=== PATIENT | female | born 1960 | race Caucasian/White ===

== ENCOUNTER 2024-07-06 13:44 | Emergency (ER) | payer OTHER, SELFPAY ==
[2024-07-06] VITALS (13 sets, daily range): BP systolic 155–182; BP diastolic 67–88; PULSE 63–87; RESP 14–25; TEMP 36.5; O2SAT 91–99; BMI 38.4
--- NOTE | 2024-07-06 13:51 | DI.RAD.S_ITS ---
PROCEDURE: XR CHEST 1V INDICATIONS: chest pain TECHNIQUE: One view of the chest was acquired. COMPARISON: None. FINDINGS: Surgical changes and devices: None. Lungs and pleura: There is mild pulmonary vascular congestion. No definite focal infiltrate. No pleural effusions or pneumothorax. Mediastinum: Mediastinal contours appear normal. Heart size is normal. Bones and chest wall: No suspicious bony lesions. Overlying soft tissues appear unremarkable. IMPRESSION: Mild congestion. No focal infiltrate, pleural effusion or pneumothorax. Dictated by: Jose Alfredo Black M.D. on 07/06/2024 at 14:11 Approved by: Jose Alfredo Black M.D. on 07/06/2024 at 14:11
[2024-07-06] MEDS: ASPIRIN 81 MG CHEW TAB 324 MG PO (13:54)
--- NOTE | 2024-07-06 13:54 | EKG_ITS ---
[address] [address] Test Date: 2024-07-06 Pat Name: Katherine He Department: Room: Gender: Female [employer]: EVANS : 1960 Requested By: Order Number: [id number] Reading MD: Perry Cerda MD Measurements Intervals [place] Rate: 63 P: 19 SC: 164 QRS: 6 QRSD: 84 T: 23 QT: 396 QTc: 405 Interpretive Statements Normal sinus rhythm Cannot rule out Inferior infarct , age undetermined Electronically Signed On 07-07-2024 7:28:32 PDT by Perry Cerda MD
[2024-07-06 14:16] LABS: Add Manual Diff / Slide Review NO; Basophils Absolute Auto 100 /uL (0-100); Basophils Percent Auto 0.9 % (0-2); Eosinophils Absolute Auto 200 /uL (0-450); Eosinophils Percent Auto 1.8 % (2-4); Hematocrit 44.7 % (36-46); Hemoglobin 15.1 g/dL (12.0-16.0); Lymphocytes Absolute Auto 1900 /uL (1100-4500); Mean Corpuscular HGB Conc 33.7 % (30-36); Mean Corpuscular Hemoglobin 29.8 PG (26-34); Mean Corpuscular Volume 88.5 fL (80-100); Monocytes Absolute Auto 500 /uL (0-900); Monocytes Percent Auto 6.3 % (3-14); Neutrophils Absolute Auto 5600 /uL (1500-7000); Platelet Count 316 X10^3/uL (150-400); Red Blood Cell Count 5.05 X10^6/uL (4.0-5.2); Red Cell Distribution Width 14.4 % (11.6-14.8); White Blood Cell Count 8.2 X10^3/uL (4.5-11.0)
[2024-07-06 14:31] LABS: PTT Partial Thromboplastin Tim 39 SECONDS (25.1-36.5); Prothrombin Time 11.5 SECONDS (9.4-12.5)
[2024-07-06 14:34] LABS: Alanine Aminotransferase 19 IU/L (<35); Albumin 4.7 g/dL (3.5-5.0); Albumin Globulin Ratio 1.3 (1.0-2.8); Alkaline Phosphatase 96 U/L (38-126); Aspartate Aminotransferase 25 IU/L (14-36); BUN Creatinine Ratio 22.4 (6-22); Bilirubin Total 0.6 mg/dL (0.2-1.3); Blood Urea Nitrogen 17 mg/dL (7-17); Calcium 9.8 mg/dL (8.4-10.2); Carbon Dioxide 25 mmol/L (22-32); Chloride 102 mmol/L (98-107); Creatine Kinase 73 U/L (30-135); Estimated Glomerular Filt Rate > 60 mL/min (>60); Globulin 3.6 g/dL (1.7-4.1); Glucose 110 mg/dL (80-110); HEMOLYSIS < 15 (0-50); Lipase 291 U/L (23-300); Magnesium 2.1 mg/dL (1.6-2.3); Potassium 4.3 mmol/L (3.4-5.1); Sodium 138 mmol/L (137-145); Total Protein 8.3 g/dL (6.3-8.2)
[2024-07-06 14:45] LABS: NT-proBNP (BNP-Adult 18+) < 20 pg/mL (<125); Troponin I < 0.012 ng/mL (0.01-0.034)
[2024-07-06 14:57] LABS: Appearance Urine UA CLEAR; Bilirubin Urine UA NEGATIVE (NEGATIVE); Color Urine UA YELLOW; Glucose Urine UA NEGATIVE (Negative); Ketones Urine UA 1+ (NEGATIVE); Leukocyte Esterase Urine UA NEGATIVE (NEGATIVE); Nitrite Urine UA NEGATIVE (Negative); Occult Blood Urine UA 2+ (Negative); Protein Urine UA NEGATIVE (Negative); Urobilinogen Urine UA 0.2 E.U./dL (0.2)
[2024-07-06 15:00] LABS: pH Urine UA 5.5 (4.5-8.0)
[2024-07-06 15:17] LABS: Amorphous Sediment Urine 1+; Bacteria Urine None Seen; Culture Indicated Urine Cult Not Indicated; RBC Urine 1-5/HPF (0-5/HPF); Squamous Epithelial Cell Urine None Seen (0-5/HPF); Urine Volume 10mL (spun); WBC Urine None Seen (0-5/HPF)
--- NOTE | 2024-07-06 15:26 | ED.DIZZY ---
HPI - Dizziness General Chief Complaint: Dizziness Stated Complaint: Dizzy,HTN Time Seen by Provider: 07/06/24 14:58 Source: patient Mode of arrival: EMS History of Present Illness HPI Narrative: Patient here with co-worker for complaints of dizziness that occurred around 12:45 p.m. today. She is feeling much better. Blood pressure noted. This is higher than what she is normally at. She has been journaling her blood pressure in the past 1 month and if she is not on any blood pressure medication. She has been evaluated by her family doctor in the last year and was told to monitor blood pressure. No primary family history of coronary artery disease or hypertension. Patient denies any chest pain shortness of breath or palpitations. She is feeling better now. At the office the systolic blood pressure was 182. Patient in no distress at this time. No history of heart attack strokes or diabetes. Complains of mild head discomfort but does not describe it as a headache. No slurred speech or facial droop. No limb numbness tingling or weakness. Fast exam is negative. Related Data Previous Rx's Medication Instructions Recorded lisinopril 10 mg tablet 10 mg PO DAILY #30 tabs 07/06/24 Allergies Allergy/AdvReac Type Severity Reaction Status Date / Time Penicillins [PENICILLINS] Allergy Unknown Verified 07/06/24 13:51 Review of Systems Review of Systems Narrative: GENERAL: Negative chills, fatigue, malaise, fever, sweats. HEENT: Negative sinus pain, ear pain, sore throat RESPIRATORY: Negative dyspnea, cough CARDIOVASCULAR: Negative chest pain, palpitations GASTROINTESTINAL: Negative vomiting, nausea, abdominal pain : Negative dysuria, frequency, hematuria MUSCULOSKELETAL: Negative muscle or bony pain SKIN: Negative rash, skin lesions NEUROLOGIC: Negative weakness, numbness positive dizziness ROS Unobtainable: All systems reviewed & are unremarkable except as noted in HPI and below Patient History Social History Smoking Status: Former smoker Smoking Status: Former smoker Exam Narrative Exam Narrative: GENERAL: in no distress, not toxic not dyspneic HEAD: Normocephalic. EYES: Pupils equal round no nystagmus ENT: Mucous membranes moist. NECK: Trachea midline. CARDIOVASCULAR: Regular rate and rhythm RESPIRATORY: Clear to auscultation. Breath sounds equal bilaterally. No wheezes, rales, or rhonchi. GASTROINTESTINAL: Abdomen soft, non-tender EXTREMITIES: No gross deformities. BACK: No flank tenderness. NEURO: AOx4. Clear speech no facial droop light touch intact bilateral face hands and legs strong equal molder feeder negative pronator drift. Fast exam negative. Patient denies any dizziness at this time. SKIN: Warm and dry PSYCH: Not anxious, is cooperative Initial Vital Signs Initial Vital Signs: Vital Signs Temperature 97.7 F 07/06/24 13:44 Pulse Rate 72 07/06/24 13:44 Respiratory Rate 18 07/06/24 13:44 Blood Pressure 182/82 H 07/06/24 13:44 Pulse Oximetry 97 07/06/24 13:44 Oxygen Delivery Method Room Air 07/06/24 13:44 Course Orders Ordered: Discontinued Medications Acetaminophen (Acetaminophen 325 Mg Tablet) 975 mg PO NOW ONE Stop: 07/06/24 15:30 Last Admin: 07/06/24 15:44 Dose: 975 mg Documented By: JUAN C Aspirin (Aspirin 81 Mg Chew Tab) 324 mg PO NOW ONE Stop: 07/06/24 13:52 Last Admin: 07/06/24 13:54 Dose: 324 mg Documented By: JUAN C Hydralazine HCl (Hydralazine 20 Mg/Ml Vial) 5 mg IV NOW ONE Stop: 07/06/24 16:59 Last Admin: 07/06/24 17:15 Dose: Not Given Documented By: ALESSANDRO Lisinopril (Lisinopril 10 Mg Tablet) 10 mg PO NOW ONE Stop: 07/06/24 15:27 Last Admin: 07/06/24 16:02 Dose: 10 mg Documented By: JUAN C Vital Signs Vital signs: Vital Signs - 8 hr 07/06/24 13:44 07/06/24 13:49 07/06/24 13:49 Temperature 97.7 F Pulse Rate 72 73 Respiratory Rate 18 Blood Pressure 182/82 H 182/82 H Pulse Oximetry 97 97 Oxygen Delivery Method Room Air 07/06/24 14:00 07/06/24 14:00 07/06/24 14:30 Temperature Pulse Rate 72 Respiratory Rate 22 Blood Pressure 173/67 H 177/88 H Pulse Oximetry 99 Oxygen Delivery Method 07/06/24 14:30 07/06/24 15:00 07/06/24 15:36 Temperature Pulse Rate 72 68 87 Respiratory Rate 23 14 Blood Pressure Pulse Oximetry 97 98 98 Oxygen Delivery Method 07/06/24 16:00 07/06/24 16:30 07/06/24 16:46 Temperature Pulse Rate 67 67 63 Respiratory Rate 21 23 21 Blood Pressure Pulse Oximetry 97 95 98 Oxygen Delivery Method 07/06/24 16:46 07/06/24 17:15 Temperature Pulse Rate 72 Respiratory Rate Blood Pressure 181/80 H 155/72 H Pulse Oximetry Oxygen Delivery Method MDM - Dizziness Lab Data 07/06/24 14:00 07/06/24 14:00 Labs: Lab Results 07/06/24 07/06/24 Range/Units 14:00 14:42 WBC 8.2 (4.5-11.0) X10^3/uL RBC 5.05 (4.0-5.2) X10^6/uL Hgb 15.1 (12.0-16.0) g/dL Hct 44.7 (36-46) % MCV 88.5 (80-100) fL MCH 29.8 (26-34) PG MCHC 33.7 (30-36) % RDW 14.4 (11.6-14.8) % Plt Count 316 (150-400) X10^3/uL Neut % (Auto) 68.0 (50-75) % Lymph % (Auto) 23.0 L (25-40) % [place] % (Auto) 6.3 (3-14) % Eos % (Auto) 1.8 L (2-4) % Baso % (Auto) 0.9 (0-2) % Neut # (Auto) 5600 (3906-1341) /uL Lymph # (Auto) 1900 (6640-7915) /uL [place] # (Auto) 500 (0-900) /uL Eos # (Auto) 200 (0-450) /uL Baso # (Auto) 100 (0-100) /uL PT 11.5 (9.4-12.5) SECONDS INR 1.0 (0.9-1.3) APTT 39 H (25.1-36.5) SECONDS Sodium 138 (137-145) mmol/L Potassium 4.3 (3.4-5.1) mmol/L Chloride 102 (98-107) mmol/L Carbon Dioxide 25 (22-32) mmol/L BUN 17 (7-17) mg/dL Creatinine 0.76 (0.52-1.04) mg/dL Estimated GFR > 60 (>60) mL/min BUN/Creatinine Ratio 22.4 H (6-22) Glucose 110 (80-110) mg/dL Calcium 9.8 (8.4-10.2) mg/dL Magnesium 2.1 (1.6-2.3) mg/dL Total Bilirubin 0.6 (0.2-1.3) mg/dL AST 25 (14-36) IU/L ALT 19 (<35) IU/L Alkaline Phosphatase 96 (38-126) U/L Total Creatine Kinase 73 (30-135) U/L Troponin I < 0.012 (0.01-0.034) ng/mL NT-Pro-B Natriuret Pep < 20 (<125) pg/mL Total Protein 8.3 H (6.3-8.2) g/dL Albumin 4.7 (3.5-5.0) g/dL Globulin 3.6 (1.7-4.1) g/dL Albumin/Globulin Ratio 1.3 (1.0-2.8) Lipase 291 (23-300) U/L Urine Color Yellow Urine Appearance Clear Urine pH 5.5 (4.5-8.0) Ur Specific [place] 1.010 (1.000-1.035) Urine Protein Negative (Negative) Urine Glucose (UA) Negative (Negative) g/dL Urine Ketones 1+ H (NEGATIVE) Urine Occult Blood 2+ H (Negative) Urine Nitrate Negative (Negative) Urine Bilirubin Negative (NEGATIVE) Urine Urobilinogen 0.2 (0.2) E.U./dL Ur Leukocyte Esterase Negative (NEGATIVE) Urine RBC 1-5/hpf (0-5/HPF) Urine WBC None seen (0-5/HPF) Ur Squamous Epith Cells None seen (0-5/HPF) Amorphous Sediment 1+ Urine Bacteria None seen (None) Ur Culture Indicated? Cult not indicated Vol Urine Centrifuged 10ml (spun) Imaging Data Chest x-ray: Radiologist's Impression: [address] [address] XRay Report Signed Patient: Katherine He MR#: [id number] : 1960 Acct:[id number] Age/Sex: 64 / F Date of Service: 07/06/24 Loc: ED Accession Number: [id number] Procedure: XR chest 1V Ordering Provider: Marlon Dupree MD PROCEDURE: XR CHEST 1V INDICATIONS: chest pain TECHNIQUE: One view of the chest was acquired. COMPARISON: None. FINDINGS: Surgical changes and devices: None. Lungs and pleura: There is mild pulmonary vascular congestion. No definite focal infiltrate. No pleural effusions or pneumothorax. Mediastinum: Mediastinal contours appear normal. Heart size is normal. Bones and chest wall: No suspicious bony lesions. Overlying soft tissues appear unremarkable. IMPRESSION: Mild congestion. No focal infiltrate, pleural effusion or pneumothorax. Dictated by: Jose Alfredo Black M.D. on 07/06/2024 at 14:11 Approved by: Jose Alfredo Black M.D. on 07/06/2024 at 14:11 CT scan - head: Radiologist's Impression: [place] [address] CT Scan Report Signed Patient: Katherine He MR#: [id number] : 1960 Acct:[id number] Age/Sex: 64 / F Date of Service: 07/06/24 Loc: ED Accession Number: [id number] Procedure: CT head/brain wo con Ordering Provider: Marlon Dupree MD PROCEDURE: CT HEAD/BRAIN WO CON INDICATIONS: Dizziness TECHNIQUE: Noncontrast 4.5 mm thick angled axial sections acquired from the foramen magnum to the vertex, with coronal and sagittal reformats. For radiation dose reduction, the following was used: automated exposure control, adjustment of mA and/or kV according to patient size. COMPARISON: None. FINDINGS: Image quality: Diagnostic. CSF spaces: Basal cisterns are patent. No extra-axial fluid collections. The ventricles are symmetric in size and shape. Brain: No intracranial bleeds or masses. There is cerebral volume loss for age, with resultant ventricular and sulcal prominence. There are periventricular and deep white matter chronic small vessel ischemic changes. There is intracranial internal carotid artery atherosclerosis. Skull and face: Calvarium and visualized facial bones appear intact, without suspicious lesions. Sinuses: Visualized sinuses and mastoids are clear. IMPRESSION: No acute intracranial pathology. Age related volume loss and mild white matter small vessel chronic ischemic changes. Dictated by: Jose Alfredo Black M.D. on 07/06/2024 at 15:46 Approved by: Jose Alfredo Black M.D. on 07/06/2024 at 15:46 [facility] Narrative Medical decision making narrative: Patient here with co-worker for complaints of dizziness that occurred around 12:45 p.m. today. She is feeling much better. Blood pressure noted. This is higher than what she is normally at. She has been journaling her blood pressure in the past 1 month and if she is not on any blood pressure medication. She has been evaluated by her family doctor in the last year and was told to monitor blood pressure. No primary family history of coronary artery disease or hypertension. Patient denies any chest pain shortness of breath or palpitations. She is feeling better now. At the office the systolic blood pressure was 182. Patient in no distress at this time. No history of heart attack strokes or diabetes. Complains of mild head discomfort but does not describe it as a headache. No slurred speech or facial droop. No limb numbness tingling or weakness. Fast exam is negative. After history and exam, CBC CMP troponin BNP chest x-ray CT head lisinopril Tylenol [facility] Medical records reviewed: No recent visit for this complaint Differential considered: Includes but not limited to hypertensive urgency stroke TIA arrhythmia Lab Test results independently reviewed as above. Pertinent findings: WBC 8.2 hemoglobin 15.1 INR 1.0 sodium 138 potassium 4.3 BUN 17 creatinine 0.76 glucose 110 troponin less than 0.012 BNP less than 20 Independently reviewed EKG normal sinus rhythm rate [address] elevation or depression Imaging studies independently reviewed: Chest x-ray no acute finding CT head no acute finding Consultations: None indicated at this time Treatments: Lisinopril/hydralazine Re-evaluations: 4:58 p.m.. Patient not dizzy. Up and walking of the bathroom without dizziness. However blood pressure systolic still 180/80. I will order hydralazine 5 mg now. No headache. 5:20 p.m.. Blood pressure 155/72 pulse 72 without hydralazine given. Patient asymptomatic. Return precautions reviewed with her. She does have a family doctor to follow up with. Lisinopril has been sent to her [facility] pharmacy to product picker and start tomorrow. She desires discharge home. Reviewed with her likely hypertensive urgency causing her symptoms today. However results are reassuring. She desires discharge home Discussion: Appropriate for exam is reassuring. Return precautions reviewed patient. Likely hypertension causing patient's symptoms. Symptoms have resolved with blood pressure control here. She desires discharge home. Likely not stroke. Diagnosis: Hypertension Discharge Plan Departure Patient Disposition: Home Clinical Impression: Hypertension Qualifiers: Hypertension type: unspecified Qualified Code(s): I10 - Essential (primary) hypertension Instructions: Essential Hypertension Activity Restrictions/Additional Instructions: Your dizziness and symptoms are likely due to spike in your blood pressure. Medication has been started for your blood pressure. Prescription has been sent to your pharmacy. Please see your family doctor within a week for re-evaluation and recheck of your blood pressure. Return if worse if any questions or concerns. Your results here are reassuring. Prescriptions: New lisinopril 10 mg tablet 10 mg PO DAILY Qty: 30 0RF Referrals: Eliana Hoang PA-C [Primary Care Provider] - Stand Alone Forms: Patient Portal/API/Survey
[2024-07-06] MEDS: ACETAMINOPHEN 325 MG TABLET 975 MG PO (15:44)
[2024-07-06] MEDS: lisinopriL 10 MG TABLET PO (16:02)
== END 2024-07-06 17:34 | disposition home or self-care (01) ==
PROVIDERS: Emergency Provider Emergency Medicine; PCP Physician Assistant Medical
DX: I10 Essential (primary) hypertension (principal); R07.9 Chest pain, unspecified; R42 Dizziness and giddiness
CPT/HCPCS: 36415; 70450; 71045; 80053; 81001; 82550; 83690; 83735; 83880; 84484; 85025; 85610; 85730; 93005; 99283; 99284